=== PATIENT | male | born 1970 | race Caucasian/White ===

== ENCOUNTER → 2024-01-31 07:44 | Outpatient (REF) | payer BC, SELFPAY | LOC: HWRAD 07:44 | PROVIDERS: ATTENDING PHYSICIAN Internal Medicine Hematology & Oncology; FAMILY PHYSICIAN Family Medicine | DX: E83.110 Hereditary hemochromatosis (principal); D75.1 Secondary polycythemia | CPT/HCPCS: 76700 ==